=== PATIENT | male | born 1985 | race Caucasian/White ===

== ENCOUNTER 2016-05-14 03:11 | Emergency (ER) | payer MEDICAID, OTHER ==
[~2016-05-14 03:11] MED LIST: ADDE30TA PO; DIPH50IN2 PO; EPIP0.3I IM; PRED20 PO
[2016-05-14 04:07] VITALS: BP 124/79; PULSE 84; RESP 14; TEMP 98.2; O2SAT 95
[2016-05-14] MEDS ORDERED: ADDE30TA PO (04:12)
--- NOTE | 2016-05-14 05:00 | PD ---
HPI Chief Complaint: OD/ Ingestion Time Seen by Provider: 04:09 Travel History International Travel<30 days: No Contact w/Intl Traveler<30days: No Traveled to known affect area: No History of Present Illness HPI The patient is 33 years old. He arrives by EMS. He experimented with intravenous heroin. His became unconscious and called EMS. Since she was unconscious EMS advised the patient, as well. Patient reports using IV heroine perhaps 10 times over the past years or so. He used it IV about 4 times in the last 4 months. Evidently he also sniffed it numerous times, 8-9 times in past few months. In the ER he has no complaint specifically no chest pain palpitation fever, or diaphoresis. He state that using the heroin was a big mistake which regrets already. He denies coingestion/co-abuse. PFS Past Medical History ADHD: Yes Diminished Hearing: No Immunizations Current: Yes Past Surgical History Surgical History: No Previous Surgery Social History Alcohol Use: Yes (SOCIALLY) Tobacco Use: No Substance Use: Yes (poly) Allergies-Medications (Allergen,Severity, Reaction): Coded Allergies: No Known Allergies (Verified , 05/14/16) Reported Meds & Prescriptions Reported Meds & Active Scripts Active Reported Adderall (Amphetamine-Dextroamphetamine) 30 Mg Tab 30 Mg PO DAILY Avoid late evening doses. Space doses at least 4 to 6 hours if more than once/day dosing. Review of Systems Except as stated in HPI: all other systems reviewed are Neg General / Constitutional: No: Fever, Chills Cardiovascular: No: Chest Pain or Discomfort, Palpitations, Diaphoresis Physical Exam Narrative GENERAL: 30 yo M, WNWD SKIN: Warm and dry. No evidence micro-embolic process. IV track crocker L antecubital fossa. HEAD: Atraumatic. Normocephalic. EYES: Pupils equal and round. No scleral icterus. No injection or drainage. ENT: No nasal bleeding or discharge. Mucous membranes pink and moist. NECK: Trachea midline. No JVD. CARDIOVASCULAR: Regular rate and rhythm. No murmur. RESPIRATORY: No accessory muscle use. Clear to auscultation. Breath sounds equal bilaterally. GASTROINTESTINAL: Abdomen soft, non-tender, nondistended. Hepatic and splenic margins not palpable. MUSCULOSKELETAL: Extremities without clubbing, cyanosis, or edema. No obvious deformities. NEUROLOGICAL: Awake and alert. No obvious cranial nerve deficits. Motor grossly within normal limits. Five out of 5 muscle strength in the arms and legs. Normal speech. PSYCHIATRIC: Appropriate mood and affect; insight and judgment normal. Data Data Last Documented VS Vital Signs Date Time Temp Pulse Resp B/P Pulse Ox O2 Delivery O2 Flow Rate FiO2 05/14/16 04:07 98.2 84 14 124/79 95 VS reviewed [facility] Medical Decision Making Medical Screen Exam Complete: Yes Emergency Medical Condition: Yes Differential Diagnosis IVDA, opioid overdose, endocarditis, opioid addiction, polysubstance abuse Narrative Course Graphic explicit details regarding potential outcomes related to continued IV abuse were discussed with the patient. He demonstrates remorse and intention to abstain from any drug abuse henceforward. Since he has no medical complaint in the ER, we can discharge him. Diagnosis Primary Impression: IVDU (intravenous drug user) Additional Impression: Heroin abuse Referrals: Primary Care Physician 2 days Additional Instructions: You have a choice when it comes to health care, and we are glad that you chose [facility]. Hopefully, we have met your expectations on today's visit. You are welcome to return to [facility] at any time, as we are committed to meeting the health care needs of our community. Med/Other Pt SpecificInfo: No Change to Meds Disposition: 01 DISCHARGE HOME Condition: Stable Jim Tobias MD May 14, 2016 05:00
== END 2016-05-14 05:35 | disposition home or self-care (01) ==
LOC: NEPC 03:11
DX: F11.10 Opioid abuse, uncomplicated (principal); Z86.59 Personal history of other mental and behavioral disorders
CPT/HCPCS: 99283